=== PATIENT | female | born 1990 | race Caucasian/White ===

== ENCOUNTER 2017-02-01 03:19 | Inpatient (IN) | payer BC ==
[2017-02-01] MEDS ORDERED: Sodium Chloride 0.9% 10 ML Syringe FLUSH PRN ×3 (03:34→17:08)
[2017-02-01] MEDS ORDERED: Ondansetron 4 MG/2 ML SDV IVPUSH PRN ×2 (03:34→15:23)
[2017-02-01] MEDS ORDERED: Nalbuphine 20 MG/1 ML Amp IVPUSH PRN (03:34)
[2017-02-01] MEDS ORDERED: Oxytocin/Lactated Ringers 10 UNIT/1,000 ML BAG IV SCH (03:45)
[2017-02-01] MEDS ORDERED: Sodium Chloride 0.9% 200 ML ONE (03:53)
[2017-02-01] MEDS ORDERED: Ampicillin 2 GM in Sodium Chloride 0.9% 100 ML IV ONE (04:00)
[2017-02-01] MEDS: Lactated Ringers 1,000 ML IV SCH ×4 (04:11→11:50)
[2017-02-01] MEDS ORDERED: Ampicillin 1 GM in Sodium Chloride 0.9% 100 ML IV SCH (04:15)
[2017-02-01] MEDS: Ampicillin 1 GM in Sodium Chloride 0.9% 100 ML IV SCH ×5 (04:24→19:14)
[2017-02-01] MEDS ORDERED: fentaNYL 100 MCG/2 ML SDV EPIDUR PRN (06:53)
[2017-02-01] MEDS ORDERED: ePHEDrine 50 MG/ML SDV IVPUSH PRN ×3 (06:53→17:08)
[2017-02-01] MEDS ORDERED: diphenhydrAMINE 50 MG/ML SDV IVPUSH PRN ×3 (06:53→17:08)
[2017-02-01] MEDS ORDERED: Bupivacaine/fentaNYL/NS 100 ML Bag EPIDUR SCH (07:00)
--- NOTE | 2017-02-01 07:27 | PCM.PREANE ---
Preanesthetic Assessment - Anesthesia/Transfusion/Family Hx Anesthesia History: Prior Anesthesia Without Reaction Family History of Anesthesia Reaction: No Transfusion History: No Prior Transfusion(s) - Review of Systems General: No Symptoms Pulmonary: No Symptoms Cardiovascular: No Symptoms Gastrointestinal: No symptoms Neurological: No Symptoms Other: Reports: None - Physical Assessment Pulse: 98 O2 Sat by Pulse Oximetry: 99 Respiratory Rate: 16 Blood Pressure: 125/87 Temperature: 37.2 C Vital Signs: Last Vital Signs Temp 37.2 C 02/01/17 03:34 Pulse 98 02/01/17 03:34 Resp 16 02/01/17 03:34 BP 125/87 02/01/17 03:34 Pulse Ox 99 02/01/17 03:34 Height: 1.57 m Weight: 76.067 kg ASA Class: 2 Mental Status: Alert & Oriented x3 Airway Class: Mallampati = 1 Dentition: Reports: Normal Dentition Thyro-Mental Finger Breadths: 3 Mouth Opening Finger Breadths: 3 ROM/Head Extension: Full Lungs: Clear to auscultation, Normal respiratory effort Cardiovascular: Regular Rate, Regular Rhythm - Lab Values: Laboratory Last Values WBC 13.79 K/mm3 (3.98-10.04) H 02/01/17 03:45 RBC 4.60 M/mm3 (3.98-5.22) 02/01/17 03:45 Hgb 13.7 gm/L (11.2-15.7) 02/01/17 03:45 Hct 39.5 % (34.1-44.9) 02/01/17 03:45 MCV 85.9 fl (79.4-94.8) 02/01/17 03:45 MCH 29.8 pg (25.6-32.2) 02/01/17 03:45 MCHC 34.7 g/dl (32.2-35.5) 02/01/17 03:45 RDW Std Deviation 40.9 fL (36.4-46.3) 02/01/17 03:45 Plt Count 251 K/mm3 (182-369) 02/01/17 03:45 MPV 9.3 fl (9.4-12.3) L 02/01/17 03:45 Neut % (Auto) 75.3 % (34.0-71.1) H 02/01/17 03:45 Lymph % (Auto) 17.8 % (19.3-51.7) L 02/01/17 03:45 [place] % (Auto) 6.1 % (4.7-12.5) 02/01/17 03:45 Eos % (Auto) 0.1 (0.7-5.8) L 02/01/17 03:45 Baso % (Auto) 0.2 % (0.1-1.2) 02/01/17 03:45 Neut # (Auto) 10.37 K/mm3 (1.56-6.13) H 02/01/17 03:45 Lymph # (Auto) 2.46 K/mm3 (1.18-3.74) 02/01/17 03:45 [place] # (Auto) 0.84 K/mm3 (0.24-0.36) H 02/01/17 03:45 Eos # (Auto) 0.02 K/mm3 (0.04-0.36) L 02/01/17 03:45 Baso # (Auto) 0.03 K/mm3 (0.01-0.08) 02/01/17 03:45 - Allergies Allergies/Adverse Reactions: Allergies Allergy/AdvReac Type Severity Reaction Status Date / Time No Known Allergies Allergy Verified 02/01/17 03:38 - Anesthesia Plan Pre-Op Medication Ordered: None - Acknowledgements Anesthesia Type Planned: Epidural Pt an Appropriate Candidate for the Planned Anesthesia: Yes Alternatives and Risks of Anesthesia Discussed w Pt/Guardian: Yes Pt/Guardian Understands and Agrees with Anesthesia Plan: Yes PreAnesthesia Questionnaire Genitourinary History: Reports: UTI, Recurrent [employer]ER History: Reports: - Past Surgical History HEENT Surgical History: Reports: Adenoidectomy, Tonsillectomy - SUBSTANCE USE Smoking Status *Q: Never Smoker Tobacco Use Within Last Twelve Months: No Second Hand Smoke Exposure: No Recreational Drug Use History: No - CURRENT (IN HOUSE) MEDS Current Meds: Current Medications Diphenhydramine HCl (Benadryl) 25 mg IVPUSH Q6H PRN PRN Reason: Itching Ephedrine Sulfate (Ephedrine Sulfate) 5 mg IVPUSH ASDIRECTED PRN PRN Reason: HYPOTENTSION Fentanyl (Sublimaze) 100 mcg EPIDUR Q3H PRN PRN Reason: PAIN Last Admin: 02/01/17 07:19 Dose: 100 mcg Fentanyl/Bupivacaine HCl (Fentanyl/Bupivacaine/Ns 2 Mcg-0.125% 100 Ml) 100 ml EPIDUR ASDIRECTED [facility] Ampicillin Sodium 1 gm/ Sodium (Chloride) 100 mls @ 200 mls/hr IV Q4H [facility] Lactated Ringer's (Ringers, Lactated) 1,000 mls @ 100 mls/hr IV ASDIRECTED [facility] Last Admin: 02/01/17 06:31 Dose: 100 mls/hr Oxytocin/Lactated Ringer's (Pitocin In Lr 10 Units/1,000 Ml) 10 unit in 1,000 mls @ 500 mls/hr IV TITRATE [facility] PRN Reason: Protocol Nalbuphine HCl (Nubain) 10 mg IVPUSH Q2H PRN PRN Reason: Pain (moderate 4-6) Ondansetron HCl (Zofran) 4 mg IVPUSH Q4H PRN PRN Reason: Nausea/Vomiting Sodium Chloride (Saline Flush) 10 ml FLUSH ASDIRECTED PRN PRN Reason: Keep Vein Open Discontinued Medications Ampicillin Sodium 2 gm/ Sodium (Chloride) 100 mls @ 200 mls/hr IV ONETIME ONE Stop: 02/01/17 04:29 Last Admin: 02/01/17 04:47 Dose: Not Given Sodium Chloride (Normal Saline) Confirm Administered Dose 200 mls @ as directed .ROUTE .STK-MED ONE Stop: 02/01/17 03:54 Last Admin: 02/01/17 04:16 Dose: Not Given Ampicillin Sodium 1 gm/ Sodium (Chloride) 100 mls @ 200 mls/hr IV Q15M [facility] Stop: 02/01/17 04:44 Last Admin: 02/01/17 04:26 Dose: 200 mls/hr
--- NOTE | 2017-02-01 08:29 | PCM.LDHP ---
L&D History of Present Illness - General Date of Service: 02/01/17 Admit Problem/Dx: Patient Status Order with Admit Dx/Problem 02/01/17 03:35 Patient Status [ADT] Routine Admission Diagnosis/Problem Admission Diagnosis/Problem Normal labor 02/01/17 08:20 26-year-old 1 para 0 at 40-4/7 weeks gestational age, active labor Source of Information: Patient History Limitations: Reports: No Limitations - History of Present Illness Introduction:: The patient is a 26-year-old 1 para 0 white female who was due on [address] or not 40-4/7 weeks gestational age. Onset of labor last evening intensified at approximately 1:00 this a.m. and came into the hospital at approximately 3:30 AM on 02/01/2017. Now is 9 cm dilated and ivan well progressing without concern. heart tones are within normal limits. [employer] history: 1 para 0 ANNALISE 01/28/2017 as based upon a certain LMP that started on 04/23/2016. These dates are supported by ultrasounds done on 2015 and 09/20/2016. Her course is been relatively unremarkable. She has an anti-M antibody titer has been negative. Etiology of the titer is not known. does not have an M antigen. Patient has not had any transfusions. It does not seem to affect the whatsoever. Patient plans to breast-feed. She is group B strep positive and is received antibiotic therapy. Her last menstrual period was relatively certain. Frequency of periods every 28 days. Menarche age 11. No control at time of conception. Female course started on 06/27/2016. Patient's weight gain has been from 142-168 pounds first a 26 pound weight gain. Her vital signs were stable. Fundal height growth has been appropriate. labs: Blood is A+. And by screen is positive for anti-M antibody. Titers however on repeat have been negative. Initial hemoglobin was 13.8. Platelets initially were 312,000. She is rubella immune. RPR is nonreactive. Urine culture was negative. Hepatitis B and HIV assays were negative. Chlamydia and gonorrhea assays were both negative. Hemoglobin second trimester was 12.0 and platelets were 258,000. One-hour GTT was 109. Group B strep screen was positive. Allergies none Medications: 1. vitamins daily 2. Calcium 600 mg 2 tablets daily. Past medical history: 1. Anti-M antibody Past surgical history: 1. Tonsillectomy 2009 2. [place] teeth extraction 2014. Family history: Mother is alive but has hypothyroidism. Father is alive but has rheumatoid arthritis and hypertension and also type 2 diabetes. One sister and 1 brother both alive and well. Maternal grandmother secondary to Alzheimer's. Maternal grandfather secondary to an [place]. Paternal grandmother -cause unknown. Paternal grandfather secondary to CLL and an [place]. Patient denies any bleeding or clotting disorders, allergies, reactions to anesthesia or problems in the family. Social history: Patient is . is [place]. She denies any significant amounts alcohol, drugs or tobacco. She works at [employer] in [facility]. They live in [place]. Review of systems. Skin -negative Lungs-no infectious symptoms or shortness of breath Cardiovascular -no chest pain or exercise intolerance. Breasts changes associated with GI negative changes associated with Musculoskeletal-negative Neurological-negative Physical exam: In general patient is a well-developed, well-nourished, pleasant female stated age in no acute distress. Skin is warm and dry without lesions. Cardiovascular exam shows regular rate and rhythm. Lungs are clear with good breath sounds in all lung atkins. Breast exam is deferred. It was done at first visit and found to be normal. Abdomen is protuberant with with fundal height of 37 cm Cervical exam: 9 cm, 100% effaced, very soft, anterior, 0 station. Extremities-no significant edema Musculoskeletal and neurologic within normal limits. Pain Score: 10 - Related Data Allergies/Adverse Reactions: Allergies Allergy/AdvReac Type Severity Reaction Status Date / Time No Known Allergies Allergy Verified 02/01/17 03:38 Past Medical History Genitourinary History: Reports: UTI, Recurrent [employer] History: Reports: - Past Surgical History HEENT Surgical History: Reports: Adenoidectomy, Tonsillectomy Social & Family History - Family History Family Medical History: Noncontributory - Tobacco Use Smoking Status *Q: Never Smoker Second Hand Smoke Exposure: No - Caffeine Use Caffeine Use: Reports: Coffee Other Caffeine Use: daily - Recreational Drug Use Recreational Drug Use: No H&P Review of Systems - Review of Systems: Review Of Systems: See Below L&D Exam - Exam Exam: See Below - Vital Signs Vital Signs: Last Vital Signs Temp 37.2 C 02/01/17 07:27 Pulse 98 02/01/17 07:27 Resp 16 02/01/17 07:27 BP 125/87 02/01/17 07:27 Pulse Ox 99 02/01/17 07:27 Weight: 76.067 kg - Patient Data Lab Results Last 24 hrs: Laboratory Results - last 24 hr 02/01/17 Range/Units 03:45 WBC 13.79 H (3.98-10.04) K/mm3 RBC 4.60 (3.98-5.22) M/mm3 Hgb 13.7 (11.2-15.7) gm/L Hct 39.5 (34.1-44.9) % MCV 85.9 (79.4-94.8) fl MCH 29.8 (25.6-32.2) pg MCHC 34.7 (32.2-35.5) g/dl RDW Std Deviation 40.9 (36.4-46.3) fL Plt Count 251 (182-369) K/mm3 MPV 9.3 L (9.4-12.3) fl Neut % (Auto) 75.3 H (34.0-71.1) % Lymph % (Auto) 17.8 L (19.3-51.7) % [place] % (Auto) 6.1 (4.7-12.5) % Eos % (Auto) 0.1 L (0.7-5.8) Baso % (Auto) 0.2 (0.1-1.2) % Neut # (Auto) 10.37 H (1.56-6.13) K/mm3 Lymph # (Auto) 2.46 (1.18-3.74) K/mm3 [place] # (Auto) 0.84 H (0.24-0.36) K/mm3 Eos # (Auto) 0.02 L (0.04-0.36) K/mm3 Baso # (Auto) 0.03 (0.01-0.08) K/mm3 Result Diagrams: 02/01/17 03:45 Problem List Initiated/Reviewed/Updated: Yes Orders Last 24hrs: Active Orders 24 hr Category Date Time Status Patient Status [ADT] Routine ADT 02/01/17 03:35 Active Activity as Tolerated [RC] PFP Care 02/01/17 03:34 Active Communication Order [RC] ASDIRECTED Care 02/01/17 03:34 Active Communication Order [RC] ASDIRECTED Care 02/01/17 06:53 Active Cooling Warming Measures [RC] ASDIRECTED Care 02/01/17 06:53 Active Heart Tones [RC] ASDIRECTED Care 02/01/17 03:35 Active Notify Provider [RC] ASDIRECTED Care 02/01/17 06:53 Active Notify Provider [RC] PFP Care 02/01/17 03:34 Active Notify Provider [RC] PRN Care 02/01/17 03:34 Active Oxygen Therapy [RC] ASDIRECTED Care 02/01/17 06:52 Active Peripheral IV Care [RC] . DIRECTED Care 02/01/17 03:35 Active Pulse Oximetry [RC] ASDIRECTED Care 02/01/17 06:53 Active Verify Patient Consent Obtain [RC] ASDIRECTED Care 02/01/17 06:53 Active Vital Signs [RC] PER UNIT ROUTINE Care 02/01/17 03:34 Active Vital Signs [RC] Q1H Care 02/01/17 06:52 Active Ampicillin 1 gm Med 02/01/17 08:00 Active Sodium Chloride 0.9% [Normal Saline] 100 ml IV Q4H Bupivacaine/fentaNYL/NS [fentaNYL/Bupivacaine/NS 2 MCG- Med 02/01/17 07:00 Active 0.125% 100 ML] 100 ml EPIDUR ASDIRECTED Lactated Ringers [Ringers, Lactated] 1,000 ml Med 02/01/17 03:45 Active IV ASDIRECTED Nalbuphine [Nubain] Med 02/01/17 03:34 Active 10 mg IVPUSH Q2H PRN Ondansetron [Zofran] Med 02/01/17 03:34 Active 4 mg IVPUSH Q4H PRN Oxytocin/Lactated Ringers [Pitocin in LR 10 Units/1,000 Med 02/01/17 03:45 Active ML] 10 unit in 1,000 ml IV TITRATE Sodium Chloride 0.9% [Saline Flush] Med 02/01/17 03:34 Active 10 ml FLUSH ASDIRECTED PRN diphenhydrAMINE [Benadryl] Med 02/01/17 06:53 Active 25 mg IVPUSH Q6H PRN ePHEDrine [ePHEDrine Sulfate] Med 02/01/17 06:53 Active 5 mg IVPUSH ASDIRECTED PRN fentaNYL [Sublimaze] Med 02/01/17 06:53 Active 100 mcg EPIDUR Q3H PRN Electronic Heart Tones Ext w TOCO [WOMSER] Oth 02/01/17 03:34 Ordered Routine Electronic Heart Tones Internal [WOMSER] Per Unit Ot 02/01/17 03:34 Ordered Routine Peripheral IV Insertion Adult [OM.PC] Routine Oth 02/01/17 03:34 Ordered Resuscitation Status Routine Resus Stat 02/01/17 03:34 Ordered Medication Orders Diphenhydramine HCl (Benadryl) 25 mg IVPUSH Q6H PRN PRN Reason: Itching Ephedrine Sulfate (Ephedrine Sulfate) 5 mg IVPUSH ASDIRECTED PRN PRN Reason: HYPOTENTSION Fentanyl (Sublimaze) 100 mcg EPIDUR Q3H PRN PRN Reason: PAIN Last Admin: 02/01/17 07:19 Dose: 100 mcg Fentanyl/Bupivacaine HCl (Fentanyl/Bupivacaine/Ns 2 Mcg-0.125% 100 Ml) 100 ml EPIDUR ASDIRECTED [facility] Ampicillin Sodium 1 gm/ Sodium (Chloride) 100 mls @ 200 mls/hr IV Q4H [facility] Last Admin: 02/01/17 08:03 Dose: 200 mls/hr Lactated Ringer's (Ringers, Lactated) 1,000 mls @ 100 mls/hr IV ASDIRECTED [facility] Last Admin: 02/01/17 07:53 Dose: 500 mls/hr Infusion: 02/01/17 07:53 Dose: 999 mls/hr Admin: 02/01/17 06:31 Dose: 100 mls/hr Infusion: 02/01/17 06:31 Dose: 100 mls/hr Admin: 02/01/17 04:11 Dose: 100 mls/hr Oxytocin/Lactated Ringer's (Pitocin In Lr 10 Units/1,000 Ml) 10 unit in 1,000 mls @ 500 mls/hr IV TITRATE [facility] PRN Reason: Protocol Nalbuphine HCl (Nubain) 10 mg IVPUSH Q2H PRN PRN Reason: Pain (moderate 4-6) Ondansetron HCl (Zofran) 4 mg IVPUSH Q4H PRN PRN Reason: Nausea/Vomiting Sodium Chloride (Saline Flush) 10 ml FLUSH ASDIRECTED PRN PRN Reason: Keep Vein Open Assessment/Plan Comment:: Assessment: 1. Term intrauterine at 40-4/7 weeks gestational age, active labor with rapid progression 2. Group B strep screen positive-antibiotics have been given 3. Anti-M antibody repeated titers in negative. Etiology uncertain. 4. Patient plans to nurse 5. Epidural in place. Plan: 1. Chest pain normal spontaneous vaginal delivery 2. Continue antibiotic prophylaxis per protocol 3. Epidural for analgesia. 4. Support nursing
--- NOTE | 2017-02-01 12:11 | PCM.SN ---
- Free Text/Narrative Note: Pushing since about 1100. Light meconium stained amniotic fluid, check to confirm vertes, FHT's normal decelerations with pushing from suspected head compression and acceleration with scalp stimulation. Continue pushing.
--- NOTE | 2017-02-01 14:28 | PCM.SN ---
- Free Text/Narrative Note: At 1415 patient has been pushing at 1100 hours with meconium stained amniotic fluid. Did have 30 minutes of not pushing while I came to confirm presentation. FHT's stable. Vertex persistant occiput posterior and zero station to +1 at most at present time. Offered section vs continued pushing for 30 minutes and reevaluate. Too high at present time to place forceps or vacuum.
[2017-02-01] MEDS ORDERED: Bupivacaine 0.5% 30 ML SDV ONE (14:29)
--- NOTE | 2017-02-01 14:37 | PCM.SN ---
- Free Text/Narrative Note: Patient and have decided upon section. Patient exhausted. Will proceed with section
[2017-02-01] MEDS ORDERED: Metoclopramide 10 MG/2 ML SDV IVPUSH ONE ×2 (14:38→14:40)
[2017-02-01] MEDS ORDERED: Citric Acid/Sodium Citrate Solution 30 ML Cup PO ONE ×2 (14:39→14:40)
[2017-02-01] MEDS ORDERED: ceFAZolin 2 GM in Premix Bag 1 BAG IV ONE (14:40)
[2017-02-01] MEDS ORDERED: Lactated Ringers 1,000 ML IV SCH (14:45)
[2017-02-01] MEDS ORDERED: Phenylephrine 1% 10 MG/ML SDV ONE (14:55)
[2017-02-01] MEDS ORDERED: fentaNYL 100 MCG/2 ML SDV ONE (14:55)
[2017-02-01] MEDS ORDERED: Ondansetron 4 MG/2 ML SDV ONE (14:55)
[2017-02-01] MEDS ORDERED: ceFAZolin 1 GM Vial ONE (14:55)
[2017-02-01] MEDS ORDERED: Oxytocin 10 Units/1 ML SDV ONE (14:55)
[2017-02-01] MEDS ORDERED: Lidocaine 2% with EPINEPHrine 1:200,000 20 ML SDV ONE (14:55)
[2017-02-01] MEDS ORDERED: Ketorolac 30 MG/ML SDV ONE (14:55)
--- NOTE | 2017-02-01 14:55 | PCM.OPNOTE ---
- General Post-Op/Procedure Note Date of Surgery/Procedure: 02/01/17 Operative Procedure(s): section Pre Op Diagnosis: 40+ weeks, meconium stained amniotic fluic, failure to progress second stage, occiput posterior Post-Op Diagnosis: Same Anesthesia Technique: Epidural Primary Surgeon: Chu Rai Secondary Surgeon: Sandra Levine Anesthesia Provider: Juliann Beckford Cash Room Clerk: Marion Vo (MS3) Fluid Replacement, Intraop: 850 Output, Urine Amount: 100 EBL in mLs: 60 Drain/Tube Comments:: Monet catheter Complications: None Condition: Good Free Text/Narrative:: Patient was transported to operating room #1 and placed under epidural anesthesia in the supine position with wedge under right hip right flank SCDs in place and functioning prior surgery Ancef 2 g given intravenously prior surgery Monet catheter in place prepared and draped in sterile fashion timeout performed confirming name date of and procedure section adequate level of anesthesia having been confirmed injecting 20 mL of 0.5% Marcaine in the subcutaneous tissue and area of the planned incision the was brought to the operating room incision made and care was sharp section to into the anterior fascia (Pfannenstiel incision). The incision was carried sharp section to into the anterior fascia peritoneal cavity was entered without difficulty bladder flap created pushed caudad the amniotic cavity was entered through a low transverse uterine incision and the head was occiput posterior gently lifted out of the pelvis and rotated to occiput anterior and delivered a female liveborn and 1521 hrs. weighing 6 lbs. 14 oz. 8/9 Dr. Rashid as400 administrator in attendance. The cord was clamped and handed to Dr. Rashid and cord blood collected from normal three-vessel cord placenta was removed manually and the endometrial cavity was inspected sponge needle pack asthma sharp count correct 1 and uterine incision closed in 2 layers with a running locking suture of 0 Monocryl and second horizontal imbricating suture the modified Lembert type for the second layer closure with an additional figure -of-eight suture midportion of the incision for hemostasis both tubes and ovaries were normal clot screen from the gutters and cul-de-sac uterus replaced into abdominal cavity sponge needle pack asthma sharp count correct 2 and the abdominal cavity was closed with #1 PDS for the anterior fascia septated tissue was irrigated with 500 mL of saline and skin was closed with subcuticular stitch of 3-0 Monocryl and Leander needle and Preneo Dermabond applied no blood transfusions were required not anticipated clots were cleaned from the vagina and the patient was transported postanesthesia care unit in satisfactory condition
[2017-02-01] MEDS ORDERED: Morphine PF 10 MG/10 ML SDV ONE (14:56)
[2017-02-01] MEDS ORDERED: Methylergonovine 0.2 MG/1 ML Amp ONE (15:15)
[2017-02-01] MEDS ORDERED: HYDROmorphone 0.5 MG/0.5 ML Syringe IVPUSH PRN (15:23)
[2017-02-01] MEDS ORDERED: fentaNYL 100 MCG/2 ML SDV IVPUSH PRN (15:23)
[2017-02-01] MEDS ORDERED: Meperidine PF 50 MG/ML Syringe IVPUSH PRN (15:23)
[2017-02-01] MEDS ORDERED: Phenylephrine 1 MG in Sodium Chloride 0.9% 10 ML IV SCH (15:30)
[2017-02-01] MEDS ORDERED: Meperidine PF 50 MG/ML Syringe ONE (15:38)
[2017-02-01] MEDS ORDERED: Misoprostol 200 MCG Tab ONE (15:58)
--- NOTE | 2017-02-01 16:02 | PCM.POSTAN ---
POST ANESTHESIA ASSESSMENT - MENTAL STATUS Mental Status: alert - VITAL SIGNS Pulse Rate: 90 SaO2: 95 Resp Rate: 16 Blood Pressure: 107/70 Temperature: 36.4 C - RESPIRATORY Respiratory Status: respiratory rate WNL, airway patent, O2 saturation stable - CARDIOVASCULAR CV Status: pulse rate WNL, blood pressure stable - GASTROINTESTINAL GI Status: no symptoms - POST OP HYDRATION Hydration Status: adequate & stable
--- NOTE | 2017-02-01 16:07 | PCM.SN ---
- Free Text/Narrative Note: Called to [facility] patient had increased bleeding. Vigorous assage of uterus and patient had IV dilute Pitocin solution running and given Methergine 0.2 IM in OR and now ordered Cytotec 200 mcg x2 buccal left and right total of 400 mcg. Clots cleaned from the vagina and patient bleeding slowed significantly. CBC ordered and patient stable.
[2017-02-01] MEDS ORDERED: Acetaminophen 325 MG Tab PO PRN (17:08)
[2017-02-01] MEDS ORDERED: Dextrose 5%-Lactated Ringers 1,000 ML IV SCH (17:08)
[2017-02-01] MEDS ORDERED: Lanolin 100% Cream 7 GM Tube TOP PRN (17:08)
[2017-02-01] MEDS ORDERED: Naloxone 0.4 MG/ML SDV IVPUSH PRN (17:08)
[2017-02-01] MEDS ORDERED: Witch Hazel Medicated Pads 100/Jar TOP PRN (17:08)
[2017-02-01] MEDS ORDERED: Misoprostol 200 MCG Tab PO ONE (17:08)
[2017-02-01] MEDS ORDERED: Docusate Sodium 100 MG Cap PO PRN (17:08)
[2017-02-01] MEDS ORDERED: Ondansetron 4 MG/2 ML SDV IV PRN (17:08)
[2017-02-01] MEDS: Ketorolac 30 MG/ML SDV IVPUSH SCH (21:37)
[2017-02-02] MEDS ORDERED: Dextrose 5%-0.45% NaCl 1,000 ML IV SCH (01:00)
[2017-02-02] MEDS: Ketorolac 30 MG/ML SDV IVPUSH SCH ×2 (03:40→14:08)
--- NOTE | 2017-02-02 07:53 | PCM48HPAN ---
Post Anesthesia Note - EVALUATION WITHIN 48HRS OF ANESTHETIC Vital Signs in Normal Range: Yes Patient Participated in Evaluation: Yes Respiratory Function Stable: Yes Airway Patent: Yes Cardiovascular Function Stable: Yes Hydration Status Stable: Yes Pain Control Satisfactory: Yes Nausea and Vomiting Control Satisfactory: Yes Mental Status Recovered: Yes - COMMENTS/OBSERVATIONS Free Text/Narrative:: Pt reports doing well. baby likewise doing well. reports epidural is completely resolved with return of normal sensation and strength. has been up ambulating without problem. maldonado just removed, no attempt yet at using restroom. no f/c or n/v. taking p.o. without problem.
--- NOTE | 2017-02-02 07:57 | PCM.SN ---
- Free Text/Narrative Note: POD#1 Afebrile, no heavy vaginal bleeding, no leg cramping. Incision normal.
[2017-02-02] MEDS ORDERED: Bupivacaine 0.25% 10 ML SDV ONE (09:00)
[2017-02-02] MEDS: Acetaminophen/oxyCODONE 325-5 MG Tab PO PRN ×2 (14:14→23:15)
[2017-02-02] MEDS: Ibuprofen 600 MG Tab PO PRN (20:30)
[2017-02-03] MEDS: Ibuprofen 600 MG Tab PO PRN ×2 (03:37→13:44)
[2017-02-03 13:11] VITALS: BP 140/86
--- NOTE | 2017-02-03 13:32 | PCM.DCSUM1 ---
Discharge Summary - Hospital Course Free Text/Narrative:: [facility] Post-Op/Procedure Note Patient Name: HAYLEE LEONG Date of : 88 Patient Status: Inpatient Attending Provider: Reji Castaneda Date: 02/01/17 14:53 Initialization Date: 02/01/17 14:53 - General Post-Op/Procedure Note Date of Surgery/Procedure: 02/01/17 Operative Procedure(s): section Pre Op Diagnosis: 40+ weeks, meconium stained amniotic fluic, failure to progress second stage, occiput posterior Post-Op Diagnosis: Same Anesthesia Technique: Epidural Primary Surgeon: Chu Rai Secondary Surgeon: Sandra Levine Anesthesia Provider: Juliann Beckford Deodorizer Operator: Marion Vo (MS3) Fluid Replacement, Intraop: 850 Output, Urine Amount: 100 EBL in mLs: 60 Drain/Tube Comments:: Monet catheter Complications: None Condition: Good Free Text/Narrative:: Patient was transported to operating room #1 and placed under epidural anesthesia in the supine position with wedge under right hip right flank SCDs in place and functioning prior surgery Ancef 2 g given intravenously prior surgery Monet catheter in place prepared and draped in sterile fashion timeout performed confirming name date of and procedure section adequate level of anesthesia having been confirmed injecting 20 mL of 0.5% Marcaine in the subcutaneous tissue and area of the planned incision the was brought to the operating room incision made and care was sharp section to into the anterior fascia (Pfannenstiel incision). The incision was carried sharp section to into the anterior fascia peritoneal cavity was entered without difficulty bladder flap created pushed caudad the amniotic cavity was entered through a low transverse uterine incision and the head was occiput posterior gently lifted out of the pelvis and rotated to occiput anterior and delivered a female liveborn and 1521 hrs. weighing 6 lbs. 14 oz. 8/9 Dr. Rashid motion picture printer in attendance. The cord was clamped and handed to Dr. Rashid and cord blood collected from normal three-vessel cord placenta was removed manually and the endometrial cavity was inspected sponge needle pack asthma sharp count correct 1 and uterine incision closed in 2 layers with a running locking suture of 0 Monocryl and second horizontal imbricating suture the modified Lembert type for the second layer closure with an additional figure -of-eight suture midportion of the incision for hemostasis both tubes and ovaries were normal clot screen from the gutters and cul-de-sac uterus replaced into abdominal cavity sponge needle pack asthma sharp count correct 2 and the abdominal cavity was closed with #1 PDS for the anterior fascia septated tissue was irrigated with 500 mL of saline and skin was closed with subcuticular stitch of 3-0 Monocryl and Leander needle and Preneo Dermabond applied no blood transfusions were required not anticipated clots were cleaned from the vagina and the patient was transported postanesthesia care unit in satisfactory condition HPI Initial Comments: [facility] Post-Op/Procedure Note Patient Name: HAYLEE LEONG Date of : 88 Patient Status: Inpatient Attending Provider: Reji Castaneda Date: 02/01/17 14:53 Initialization Date: 02/01/17 14:53 - General Post-Op/Procedure Note Date of Surgery/Procedure: 02/01/17 Operative Procedure(s): section Pre Op Diagnosis: 40+ weeks, meconium stained amniotic fluic, failure to progress second stage, occiput posterior Post-Op Diagnosis: Same Anesthesia Technique: Epidural Primary Surgeon: Chu Rai Secondary Surgeon: Sandra Levine Anesthesia Provider: Juliann Beckford Deodorizer Operator: Marion Vo (MS3) Fluid Replacement, Intraop: 850 Output, Urine Amount: 100 EBL in mLs: 60 Drain/Tube Comments:: Monet catheter Complications: None Condition: Good Free Text/Narrative:: Patient was transported to operating room #1 and placed under epidural anesthesia in the supine position with wedge under right hip right flank SCDs in place and functioning prior surgery Ancef 2 g given intravenously prior surgery Monet catheter in place prepared and draped in sterile fashion timeout performed confirming name date of and procedure section adequate level of anesthesia having been confirmed injecting 20 mL of 0.5% Marcaine in the subcutaneous tissue and area of the planned incision the was brought to the operating room incision made and care was sharp section to into the anterior fascia (Pfannenstiel incision). The incision was carried sharp section to into the anterior fascia peritoneal cavity was entered without difficulty bladder flap created pushed caudad the amniotic cavity was entered through a low transverse uterine incision and the head was occiput posterior gently lifted out of the pelvis and rotated to occiput anterior and delivered a female liveborn and 1521 hrs. weighing 6 lbs. 14 oz. 8/9 Dr. Rashid motion picture printer in attendance. The cord was clamped and handed to Dr. Rashid and cord blood collected from normal three-vessel cord placenta was removed manually and the endometrial cavity was inspected sponge needle pack asthma sharp count correct 1 and uterine incision closed in 2 layers with a running locking suture of 0 Monocryl and second horizontal imbricating suture the modified Lembert type for the second layer closure with an additional figure -of-eight suture midportion of the incision for hemostasis both tubes and ovaries were normal clot screen from the gutters and cul-de-sac uterus replaced into abdominal cavity sponge needle pack asthma sharp count correct 2 and the abdominal cavity was closed with #1 PDS for the anterior fascia septated tissue was irrigated with 500 mL of saline and skin was closed with subcuticular stitch of 3-0 Monocryl and Leander needle and Preneo Dermabond applied no blood transfusions were required not anticipated clots were cleaned from the vagina and the patient was transported postanesthesia care unit in satisfactory condition Brief History: [facility] . Post-Op/Procedure Note. Patient Name: HAYLEE LEONGedical Record Number: [id number]. Date of : Patient Status: Inpatient. Attending Provider: Reji Castaneda FAccount Number : [id number]. Date: 02/01/17 14:53Initialization Date: 02/01/17 14:53. - General Post-Op/Procedure Note. Date of Surgery/Procedure: 02/01/17. Operative Procedure(s): section. Pre Op Diagnosis: 40+ weeks, meconium stained amniotic fluic, failure to progress second stage, occiput posterior. Post-Op Diagnosis: Same. Anesthesia Technique: Epidural. Primary Surgeon: Chu Rai. Secondary Surgeon: Sandra Levine. Anesthesia Provider: Juliann Beckford. Deodorizer Operator: Marion Vo (MS3). Fluid Replacement, Intraop: 850. Output, Urine Amount: 100. EBL in mLs: 60. Drain/Tube Comments: : Monet catheter. Complications: None. Condition: Good. Free Text/Narrative: : Patient was transported to operating room #1 and placed under epidural anesthesia in the supine position with wedge under right hip right flank SCDs in place and functioning prior surgery Ancef 2 g given intravenously prior surgery Monet catheter in place prepared and draped in sterile fashion timeout performed confirming name date of and procedure section adequate level of anesthesia having been confirmed injecting 20 mL of 0.5% Marcaine in the subcutaneous tissue and area of the planned incision the was brought to the operating room incision made and care was sharp section to into the anterior fascia (Pfannenstiel incision). The incision was carried sharp section to into the anterior fascia peritoneal cavity was entered without difficulty bladder flap created pushed caudad the amniotic cavity was entered through a low transverse uterine incision and the head was occiput posterior gently lifted out of the pelvis and rotated to occiput anterior and delivered a female liveborn and 1521 hrs. weighing 6 lbs. 14 oz. 8/9 Dr. Rashid motion picture printer in attendance. The cord was clamped and handed to Dr. Rashid and cord blood collected from normal three-vessel cord placenta was removed manually and the endometrial cavity was inspected sponge needle pack asthma sharp count correct 1 and uterine incision closed in 2 layers with a running locking suture of 0 Monocryl and second horizontal imbricating suture the modified Lembert type for the second layer closure with an additional figure -of-eight suture midportion of the incision for hemostasis both tubes and ovaries were normal clot screen from the gutters and cul-de-sac uterus replaced into abdominal cavity sponge needle pack asthma sharp count correct 2 and the abdominal cavity was closed with #1 PDS for the anterior fascia septated tissue was irrigated with 500 mL of saline and skin was closed with subcuticular stitch of 3-0 Monocryl and Leander needle and Preneo Dermabond applied no blood transfusions were required not anticipated clots were cleaned from the vagina and the patient was transported postanesthesia care unit in satisfactory condition - Discharge Data Discharge Date: 02/03/17 Discharge Disposition: Home, Self-Care 01 Condition: Good - Discharge Diagnosis/Problem(s) (1) 40 weeks gestation of SNOMED Code(s): 61316528 ICD Code: Z3A.40 - 40 WEEKS GESTATION OF Status: Acute Current Visit: Yes (2) Failure to progress in labor, delivered, current hospitalization SNOMED Code(s): 247115042 ICD Code: O62.2 - OTHER UTERINE INERTIA Status: Acute Current Visit: Yes (3) Meconium in amniotic fluid affecting management of mother, delivered SNOMED Code(s): 91554816, 175634707, 993293261 ICD Code: O77.0 - LABOR AND DELIVERY COMPLICATED BY MECONIUM IN AMNIOTIC FLUID Status: Acute Current Visit: Yes (4) Occiput posterior presentation of fetus SNOMED Code(s): 94297397 ICD Code: O64.0XX0 - OBSTRUCTED LABOR DUE TO INCMPL ROTATION OF HEAD, UNSP Status: Acute Current Visit: Yes Qualifiers: Fetus number: single or unspecified fetus Qualified Code(s): O64.0XX0 - Obstructed labor due to incomplete rotation of head, not applicable or unspecified - Patient Summary/Data Operative Procedure(s) Performed: section Complications: None Consults: None Hospital Course: Uneventful - Patient Instructions Diet: Heart Healthy Diet Driving: Do Not Drive (x4 weeks or 48 hour after last dose of Percocet) Showering/Bathing: May Shower, No Tub Bathing/Swimming (x6 weeks) Wound/Incision Care: Keep Operative Site/Wound Site Clean and Dry Notify Provider of: Fever, Increased Pain, Swelling and Redness, Drainage, Nausea and/or Vomiting - Discharge Plan Prescriptions/Med Rec: Acetaminophen/oxyCODONE [Percocet 325-5 MG] 1 tab PO Q6H PRN #10 tablet PRN Reason: Pain Home Medications: Home Meds Acetaminophen [Tylenol] 1,000 mg PO Q6H PRN #0 tablet 02/03/17 [Rx] Acetaminophen/oxyCODONE [Percocet 325-5 MG] 1 tab PO Q6H PRN #10 tablet [Rx] Docusate Sodium [Colace] 100 mg PO Q12H PRN #0 cap 02/03/17 [Rx] Ibuprofen [IJD: Ibuprofen] 200 - 600 mg PO Q6H PRN #0 tablet 02/03/17 [Rx] Sushila Viramontes [Tucks] 1 pad TOP ASDIRECTED PRN #0 pad 02/03/17 [Rx] Referrals: Reji Castaneda MD [Primary Care Provider] - (4 weeks) - Discharge Summary/Plan Comment DC Time >30 min.: No - Patient Data Vitals - Most Recent: Last Vital Signs Temp 97.9 F 02/03/17 12:53 Pulse 76 02/03/17 12:53 Resp 16 02/03/17 12:53 BP 140/86 02/03/17 12:53 Pulse Ox 100 02/03/17 12:53 Weight - Most Recent: 167 lb 11.2 oz I&O - Last 24 hours: Intake & Output 02/02/17 02/03/17 02/03/17 22:59 06:59 14:59 Intake Total 0 Balance 0 Med Orders - Current: Current Medications Acetaminophen (Tylenol) 650 mg PO Q4H PRN PRN Reason: mild pain or fever Diphenhydramine HCl (Benadryl) 25 mg IVPUSH Q6H PRN PRN Reason: Itching or Nausea Docusate Sodium (Colace) 100 mg PO Q12H PRN PRN Reason: Constipation Last Admin: 02/02/17 14:13 Dose: 100 mg Emollient Ointment (Lansinoh Hpa) 0 gm TOP ASDIRECTED PRN PRN Reason: Sore Nipples Ephedrine Sulfate (Ephedrine Sulfate) 5 mg IVPUSH SEECOMMENT PRN PRN Reason: Other Dextrose/Sodium Chloride (Dextrose 5%-1/2 Ns) 1,000 mls @ 125 mls/hr IV ASDIRECTED YONG Ibuprofen (Motrin) 600 mg PO Q6H PRN PRN Reason: mild pain or fever Last Admin: 02/03/17 03:37 Dose: 600 mg Naloxone HCl (Narcan) 0.1 mg IVPUSH SEECOMMENT PRN PRN Reason: Respiratory Depression Ondansetron HCl (Zofran) 4 mg IV Q8H PRN PRN Reason: Nausea/Vomiting Oxycodone/Acetaminophen (Percocet 325-5 Mg) 2 tab PO Q4H PRN PRN Reason: Pain (moderate 4-6) Last Admin: 02/02/17 23:15 Dose: 2 tab Sodium Chloride (Saline Flush) 10 ml FLUSH ASDIRECTED PRN PRN Reason: Keep Vein Open Sushila Viramontes (Tucks) 1 pad TOP ASDIRECTED PRN PRN Reason: Perineal Comfort Measure Discontinued Medications Bupivacaine HCl (Marcaine 0.5%) Confirm Administered Dose 30 ml .ROUTE .STK-MED ONE Stop: 02/01/17 14:30 Last Admin: 02/01/17 15:18 Dose: 20 ml Cefazolin Sodium (Ancef) Confirm Administered Dose 2 gm .ROUTE .STK-MED ONE Stop: 02/01/17 14:56 Citric Acid/Sodium Citrate (Bicitra Solution) 30 ml PO ONETIME ONE Stop: 02/01/17 14:40 Last Admin: 02/01/17 14:45 Dose: 30 ml Citric Acid/Sodium Citrate (Bicitra Solution) 30 ml PO ONETIME ONE Stop: 02/01/17 14:41 Last Admin: 02/01/17 19:13 Dose: Not Given Diphenhydramine HCl (Benadryl) 25 mg IVPUSH Q6H PRN PRN Reason: Itching Diphenhydramine HCl (Benadryl) 25 mg IVPUSH Q6H PRN PRN Reason: pruritis Ephedrine Sulfate (Ephedrine Sulfate) 5 mg IVPUSH ASDIRECTED PRN PRN Reason: HYPOTENTSION Ephedrine Sulfate (Ephedrine Sulfate) 5 mg IVPUSH ASDIRECTED PRN PRN Reason: Hypotension Fentanyl (Sublimaze) 100 mcg EPIDUR Q3H PRN PRN Reason: PAIN Last Admin: 02/01/17 07:19 Dose: 100 mcg Fentanyl (Sublimaze) Confirm Administered Dose 100 mcg .ROUTE .STK-MED ONE Stop: 02/01/17 14:56 Fentanyl (Sublimaze) 50 mcg IVPUSH Q5M PRN PRN Reason: Pain Stop: 02/01/17 15:39 Fentanyl/Bupivacaine HCl (Fentanyl/Bupivacaine/Ns 2 Mcg-0.125% 100 Ml) 100 ml EPIDUR ASDIRECTED YONG Hydromorphone HCl (Dilaudid) 0.5 mg IVPUSH Q15M PRN PRN Reason: severe pain Stop: 02/01/17 15:39 Ampicillin Sodium 2 gm/ Sodium (Chloride) 100 mls @ 200 mls/hr IV ONETIME ONE Stop: 02/01/17 04:29 Last Admin: 02/01/17 04:47 Dose: Not Given Ampicillin Sodium 1 gm/ Sodium (Chloride) 100 mls @ 200 mls/hr IV Q4H [facility] Last Admin: 02/01/17 19:14 Dose: Not Given Lactated Ringer's (Ringers, Lactated) 1,000 mls @ 100 mls/hr IV ASDIRECTED [facility] Last Admin: 02/01/17 11:50 Dose: 500 mls/hr Oxytocin/Lactated Ringer's (Pitocin In Lr 10 Units/1,000 Ml) 10 unit in 1,000 mls @ 500 mls/hr IV TITRATE [facility] PRN Reason: Protocol Sodium Chloride (Normal Saline) Confirm Administered Dose 200 mls @ as directed .ROUTE .STK-MED ONE Stop: 02/01/17 03:54 Last Admin: 02/01/17 04:16 Dose: Not Given Ampicillin Sodium 1 gm/ Sodium (Chloride) 100 mls @ 200 mls/hr IV Q15M [facility] Stop: 02/01/17 04:44 Last Admin: 02/01/17 04:26 Dose: 200 mls/hr Cefazolin Sodium/Dextrose 2 gm (/ Premix) 50 mls @ 100 mls/hr IV ONETIME ONE Stop: 02/01/17 15:09 Last Admin: 02/01/17 19:13 Dose: Not Given Lactated Ringer's (Ringers, Lactated) 1,000 mls @ 125 mls/hr IV ASDIRECTED [facility] Phenylephrine HCl 1 mg/ Sodium (Chloride) 10.1 mls @ 1 mls/sec IV TITRATE YONG Dextrose/Lactated Ringer's (Dextrose 5%-Lactated Ringers) 1,000 mls @ 125 mls/ hr IV ASDIRECTED [facility] Stop: 02/02/17 01:07 Last Admin: 02/01/17 18:00 Dose: 125 mls/hr Ketorolac Tromethamine (Toradol) Confirm Administered Dose 30 mg .ROUTE .STK- MED ONE Stop: 02/01/17 14:56 Ketorolac Tromethamine (Toradol) 30 mg IVPUSH Q6H [facility] Stop: 02/02/17 09:31 Last Admin: 02/02/17 14:08 Dose: Not Given Lidocaine/Epinephrine (Xylocaine-Mpf 2%-Epi 1:200,000) Confirm Administered Dose 20 ml .ROUTE .STK-MED ONE Stop: 02/01/17 14:56 Meperidine HCl (Demerol) 12.5 mg IVPUSH ONETIME PRN PRN Reason: shivering Stop: 02/02/17 15:24 Last Admin: 02/01/17 17:00 Dose: 12.5 mg Meperidine HCl (Demerol) Confirm Administered Dose 50 mg .ROUTE .STK-MED ONE Stop: 02/01/17 15:39 Methylergonovine Maleate (Methergine) Confirm Administered Dose 0.2 mg .ROUTE .STK-MED ONE Stop: 02/01/17 15:16 Metoclopramide HCl (Reglan) 10 mg IVPUSH ONETIME ONE Stop: 02/01/17 14:39 Last Admin: 02/01/17 14:45 Dose: 10 mg Metoclopramide HCl (Reglan) 10 mg IVPUSH ONETIME ONE Stop: 02/01/17 14:41 Last Admin: 02/01/17 19:14 Dose: Not Given Misoprostol (Cytotec) Confirm Administered Dose 400 mcg .ROUTE .STK-MED ONE Stop: 02/01/17 15:59 Last Admin: 02/01/17 18:26 Dose: Not Given Misoprostol (Cytotec) 400 mcg PO ONETIME ONE Stop: 02/01/17 17:09 Last Admin: 02/01/17 18:27 Dose: Not Given Morphine Sulfate (Duramorph Pf) Confirm Administered Dose 10 mg .ROUTE .STK-MED ONE Stop: 02/01/17 14:57 Nalbuphine HCl (Nubain) 10 mg IVPUSH Q2H PRN PRN Reason: Pain (moderate 4-6) Ondansetron HCl (Zofran) 4 mg IVPUSH Q4H PRN PRN Reason: Nausea/Vomiting Ondansetron HCl (Zofran) Confirm Administered Dose 4 mg .ROUTE .STK-MED ONE Stop: 02/01/17 14:56 Ondansetron HCl (Zofran) 4 mg IVPUSH ONETIME PRN PRN Reason: Nausea/Vomiting Oxytocin (Pitocin) Confirm Administered Dose 20 unit .ROUTE .STK-MED ONE Stop: 02/01/17 14:56 Phenylephrine HCl ([place]let-Synephrine) Confirm Administered Dose 10 mg .[address] .[facility] ONE Stop: 02/01/17 14:56 Sodium Chloride (Saline Flush) 10 ml FLUSH ASDIRECTED PRN PRN Reason: Keep Vein Open Sodium Chloride (Saline Flush) 10 ml FLUSH ASDIRECTED PRN PRN Reason: Keep Vein Open *Q Meaningful Use (DIS) - VTE *Q VTE Criteria *Q: - Stroke *Q Stroke Criteria *Q: - AMI *Q AMI Criteria *Q:
== END 2017-02-03 18:07 | disposition home or self-care (01) | DRG 540 ==
LOC: JD.OBCHECK 03:19 → JD.OB 03:22 → JD.OBCHECK 03:43 → JD.OB 03:46 → OBSVTOIN 15:21 → JD.OB 15:21
PROVIDERS: ADMIT Obstetrics & Gynecology; ATTEND Obstetrics & Gynecology
PROC: 10D00Z1 Extraction of Products of Conception, Low, Open Approach (ICD-10-PCS; principal; 2017-02-01)
PROC: 10907ZC Drainage of Amniotic Fluid, Therapeutic from Products of Conception, Via Natural or Artificial Opening (ICD-10-PCS; 2017-02-01)
PROC: 00HU33Z Insertion of Infusion Device into Spinal Canal, Percutaneous Approach (ICD-10-PCS; 2017-02-01)
PROC: 3E0R3CZ (ICD-10-PCS; 2017-02-01)
DX: O99.824 Streptococcus B carrier state complicating childbirth (principal); Z3A.41 41 weeks gestation of pregnancy; Z37.0 Single live birth; O77.0 Labor and delivery complicated by meconium in amniotic fluid; O64.0XX0 Obstructed labor due to incomplete rotation of fetal head, not applicable or unspecified; O62.2 Other uterine inertia
CPT/HCPCS: 01967; 01968; 36415; 85025; 86850; 86870; 86900; 86901; 94762; A9270-GY; J0290; J0690; J1885; J2175; J2210; J2270; J2370; J2405; J2590; J2765; J3010; J7030; J7042; J7120

== ENCOUNTER 2020-01-29 05:44 | Inpatient (IN) | payer BC ==
[~2020-01-29 05:44] MED LIST: Sodium Chloride 0.9% 10 ML Syringe FLUSH PRN
[2020-01-29] MEDS: Lactated Ringers 1,000 ML IV SCH ×2 (06:20→11:15)
[2020-01-29] MEDS ORDERED: ceFAZolin 1 GM Vial ONE (07:03)
[2020-01-29] MEDS ORDERED: Ondansetron 4 MG/2 ML SDV ONE (07:03)
[2020-01-29] MEDS ORDERED: Morphine PF 1 MG/ML Amp ONE (07:03)
--- NOTE | 2020-01-29 07:23 | PCM.OPNOTE ---
- General Post-Op/Procedure Note Date of Surgery/Procedure: 01/29/20 Operative Procedure(s): Repeat low transverse Findings: Minimal amount of scar tissue between rectus and fascia. Minimal scarring between uterus and bladder. Baby boy in a vertex presentation. APGARS of 9 & 9. Weight of 7 lbs 12 oz. Grossly normal appearance of the uterus, fallopian tubes, and ovaries. Pre Op Diagnosis: History of . 39 2/7 weeks gestation Post-Op Diagnosis: Same Anesthesia Technique: Spinal Primary Surgeon: Sandra Levine Secondary Surgeon: Reina Roach Anesthesia Provider: Pham Villa Reason Channel Process Supervisor Was Necessary: Speed, safety of procedure Pathology: Cord blood collected, cord blood discarded Fluid Replacement, Intraop: 2,500 Output, Urine Amount: 275 EBL in mLs: 700 Complications: None Condition: Good Free Text/Narrative:: The risks, benefits, indications, potential complications, and alternatives were explained to the patient and informed consent obtained. After induction of anesthesia, the patient was placed in a supine position and then draped and prepped in the usual sterile manner. A Pfannenstiel incision was made and carried down through the subcutaneous tissue to the fascia. Fascial incision was made and extended transversely. The fascia was from the underlying rectus tissue superiorly and inferiorly. The peritoneum was identified and entered. Peritoneal incision was extended longitudinally. The utero-vesical peritoneal reflection was incised transversely and the bladder flap was bluntly freed from the lower uterine segment. A low transverse uterine incision was made sharply with a scalpel and extended bluntly in a cephalocaudad direction. A baby boy was delivered from a vertex presentation with APGARS as above. After the umbilical cord was clamped and cut cord blood was obtained for evaluation. The placenta was removed intact and appeared normal. The uterus was exteriorized and cleared of clots. The uterine outline, tubes and ovaries appeared normal. The uterine incision was closed with running locked sutures of 0 Vicryl. Hemostasis was obtained with a second imbricating layer of 0 vicryl. The uterus was then placed back into the abdomen. The infracolic gutters were cleared of blood clots. The fascia was then reapproximated with running sutures of 0 Vicryl. The subcutaneous tissue was irrigated with sterile warm normal saline, hemostasis obtained with cautery. This layer was closed with several interrupted sutures of 0 Vicryl. The skin was reapproximated with running Subcuticular 4-0 monocryl sutures. Incision sealed with Dermabond. Instrument, sponge, and needle counts were correct prior the abdominal closure and at the conclusion of the case.
--- NOTE | 2020-01-29 07:23 | PCM.PREANE ---
Preanesthetic Assessment - Procedure Proposed Procedure: maria dolores - Anesthesia/Transfusion/Family Hx Anesthesia History: Prior Anesthesia Without Reaction Family History of Anesthesia Reaction: No Transfusion History: No Prior Transfusion(s) - Review of Systems General: No Symptoms, Night Sweats Pulmonary: No Symptoms Cardiovascular: No Symptoms Gastrointestinal: No Symptoms Neurological: No Symptoms Other: Reports: None - Physical Assessment NPO Status Date: 01/28/20 NPO Status Time: 22:30 Vital Signs: Last Vital Signs Temp 98.1 F 01/29/20 06:01 Pulse 108 H 01/29/20 06:01 Resp 16 01/29/20 06:01 BP 127/88 01/29/20 06:01 Pulse Ox 98 01/29/20 06:01 Height: 5 ft 2 in Weight: 81.511 kg ASA Class: 2 Mental Status: Alert & Oriented x3 Airway Class: Mallampati = 1 Dentition: Reports: Normal Dentition Thyro-Mental Finger Breadths: 3 Mouth Opening Finger Breadths: 3 ROM/Head Extension: Full Lungs: Clear to Auscultation, Normal Respiratory Effort Cardiovascular: Regular Rate, Regular Rhythm, No Murmurs - Lab Values: Laboratory Last Values WBC 9.86 K/mm3 (3.98-10.04) 01/29/20 06:05 RBC 4.40 M/mm3 (3.98-5.22) 01/29/20 06:05 Hgb 12.9 gm/dl (11.2-15.7) 01/29/20 06:05 Hct 38.4 % (34.1-44.9) 01/29/20 06:05 MCV 87.3 fl (79.4-94.8) 01/29/20 06:05 MCH 29.3 pg (25.6-32.2) 01/29/20 06:05 MCHC 33.6 g/dl (32.2-35.5) 01/29/20 06:05 RDW Std Deviation 41.9 fL (36.4-46.3) 01/29/20 06:05 Plt Count 239 K/mm3 (182-369) 01/29/20 06:05 MPV 9.3 fl (9.4-12.3) L 01/29/20 06:05 Neut % (Auto) 65.8 % (34.0-71.1) 01/29/20 06:05 Lymph % (Auto) 24.5 % (19.3-51.7) 01/29/20 06:05 [place] % (Auto) 8.2 % (4.7-12.5) 01/29/20 06:05 Eos % (Auto) 0.5 (0.7-5.8) L 01/29/20 06:05 Baso % (Auto) 0.2 % (0.1-1.2) 01/29/20 06:05 Neut # (Auto) 6.48 K/mm3 (1.56-6.13) H 01/29/20 06:05 Lymph # (Auto) 2.42 K/mm3 (1.18-3.74) 01/29/20 06:05 [place] # (Auto) 0.81 K/mm3 (0.24-0.36) H 01/29/20 06:05 Eos # (Auto) 0.05 K/mm3 (0.04-0.36) 01/29/20 06:05 Baso # (Auto) 0.02 K/mm3 (0.01-0.08) 01/29/20 06:05 - Allergies Allergies/Adverse Reactions: Allergies Allergy/AdvReac Type Severity Reaction Status Date / Time No Known Allergies Allergy Verified 01/28/20 16:26 - Blood Blood Available: No - Acknowledgements Anesthesia Type Planned: Spinal Pt an Appropriate Candidate for the Planned Anesthesia: Yes Alternatives and Risks of Anesthesia Discussed w Pt/Guardian: Yes Pt/Guardian Understands and Agrees with Anesthesia Plan: Yes PreAnesthesia Questionnaire Cardiovascular History: Reports: None Respiratory History: Reports: None Gastrointestinal History: Reports: GERD (occ with preg) Genitourinary History: Reports: UTI, Recurrent EDGER TECHNICIAN History: Reports: : 2 (39 3) Para: 1 Musculoskeletal History: Reports: None Oncologic (Cancer) History: Reports: None - Past Surgical History HEENT Surgical History: Reports: Adenoidectomy, Tonsillectomy Other HEENT Surgeries/Procedures: T&A in 2009, Tooth extractions 2014 Female Surgical History: Reports: Section Other Female Surgeries/Procedures: C/S 2017 - SUBSTANCE USE Smoking Status *Q: Never Smoker Tobacco Use Within Last Twelve Months: No Second Hand Smoke Exposure: No Days Per Week of Alcohol Use: 0 Recreational Drug Use History: No - HOME MEDS Home Medications: Home Meds Pnv,Calcium 72/Iron/Folic Acid [ Plus Tablet] 1 tab PO DAILY 01/28/20 [History] - CURRENT (IN HOUSE) MEDS Current Meds: Current Medications Citric Acid/Sodium Citrate (Bicitra Solution) 30 ml PO ONETIME ONE Stop: 01/29/20 07:31 Last Admin: 01/29/20 06:58 Dose: 30 ml Documented by: Cefazolin Sodium/Dextrose 2 gm (/ Premix) 50 mls @ 100 mls/hr IV ONETIME ONE Stop: 01/29/20 08:14 Oxytocin/Lactated Ringer's (Pitocin In Lr 10 Units/1,000 Ml) 10 unit in 1,000 mls @ 100 mls/hr IV ASDIRECTED YONG; Protocol Lactated Ringer's (Ringers, Lactated) 1,000 mls @ 125 mls/hr IV ASDIRECTED YONG Metoclopramide HCl (Reglan) 10 mg IVPUSH ONETIME ONE Stop: 01/29/20 07:31 Last Admin: 01/29/20 07:00 Dose: 10 mg Documented by: Sodium Chloride (Saline Flush) 10 ml FLUSH ASDIRECTED PRN PRN Reason: Keep Vein Open Discontinued Medications Cefazolin Sodium (Ancef) Confirm Administered Dose 2 gm .ROUTE .STK-MED ONE Stop: 01/29/20 07:04 Morphine Sulfate (Duramorph Pf) Confirm Administered Dose 1 mg .ROUTE .STK-MED ONE Stop: 01/29/20 07:04 Ondansetron HCl (Zofran) Confirm Administered Dose 4 mg .ROUTE .STK-MED ONE Stop: 01/29/20 07:04
[2020-01-29] MEDS ORDERED: Citric Acid/Sodium Citrate Solution 30 ML Cup PO ONE (07:30)
[2020-01-29] MEDS ORDERED: Metoclopramide 10 MG/2 ML SDV IVPUSH ONE (07:30)
[2020-01-29] MEDS ORDERED: ceFAZolin 2 GM in Premix Bag 1 BAG IV ONE (07:45)
[2020-01-29] MEDS ORDERED: Oxytocin 10 Units/1 ML SDV ONE (07:55)
[2020-01-29] MEDS ORDERED: ePHEDrine Sulfate/0.9% NaCl/Pf 25 MG/5 ML SYRINGE IV ONE (07:58)
[2020-01-29] MEDS ORDERED: Oxytocin/Lactated Ringers 10 UNIT/1,000 ML BAG IV SCH (08:00)
[2020-01-29] MEDS ORDERED: Bupivacaine/fentaNYL/NS 100 ML Bag EPIDUR PRN (08:10)
[2020-01-29] MEDS ORDERED: diphenhydrAMINE 50 MG/ML SDV IVPUSH PRN ×2 (08:10→08:11)
[2020-01-29] MEDS ORDERED: ePHEDrine 50 MG/ML SDV IVPUSH PRN (08:10)
[2020-01-29] MEDS ORDERED: fentaNYL 100 MCG/2 ML SDV EPIDUR PRN (08:10)
[2020-01-29] MEDS ORDERED: fentaNYL 100 MCG/2 ML SDV IVPUSH PRN (08:11)
[2020-01-29] MEDS ORDERED: Ondansetron 4 MG/2 ML SDV IVPUSH PRN (08:11)
[2020-01-29] MEDS ORDERED: Ketorolac 30 MG/ML SDV ONE (08:14)
[2020-01-29] MEDS ORDERED: Lactated Ringers 1,000 ML ONE ×2 (08:21)
--- NOTE | 2020-01-29 08:45 | PCM.POSTAN ---
POST ANESTHESIA ASSESSMENT - MENTAL STATUS Mental Status: Alert, Oriented - VITAL SIGNS Vital Signs: Last Vital Signs Temp 98.1 F 01/29/20 06:01 Pulse 108 H 01/29/20 06:01 Resp 16 01/29/20 06:01 BP 127/88 01/29/20 06:01 Pulse Ox 98 01/29/20 06:01 0838 65 15 98.3 100% 101/65 - RESPIRATORY Respiratory Status: Respiratory Rate WNL, Airway Patent, O2 Saturation Stable, Supplemental Oxygen - CARDIOVASCULAR CV Status: Pulse Rate WNL, Blood Pressure Stable - GASTROINTESTINAL GI Status: No Symptoms - PAIN Pain Score: 0 - POST OP HYDRATION Hydration Status: Adequate & Stable
[2020-01-29] MEDS ORDERED: Docusate Sodium 100 MG Cap PO PRN (10:22)
[2020-01-29] MEDS ORDERED: Acetaminophen/oxyCODONE 325-5 MG Tab PO PRN ×2 (10:22)
[2020-01-29] MEDS ORDERED: Ondansetron 4 MG/2 ML SDV IV PRN (10:22)
[2020-01-29] MEDS ORDERED: Dextrose 5%-Lactated Ringers 1,000 ML IV SCH (10:22)
[2020-01-29] MEDS: Ketorolac 30 MG/ML SDV IVPUSH SCH ×2 (14:30→20:43)
[2020-01-30] MEDS: Ketorolac 30 MG/ML SDV IVPUSH SCH (02:58)
--- NOTE | 2020-01-30 07:09 | PCM.PNPP ---
- General Info Date of Service: 01/30/20 Functional Status: Reports: Pain Controlled, Tolerating Diet, Ambulating, Urinating - Review of Systems General: Reports: No Symptoms Pulmonary: Reports: No Symptoms Cardiovascular: Reports: No Symptoms Gastrointestinal: Reports: Abdominal Pain (minimal) Genitourinary: Reports: No Symptoms Musculoskeletal: Reports: No Symptoms Neurological: Reports: No Symptoms - Patient Data Vital Signs - Most Recent: Last Vital Signs Temp 36.6 C 01/30/20 03:05 Pulse 77 01/30/20 03:05 Resp 16 01/30/20 06:00 BP 118/69 01/30/20 03:05 Pulse Ox 100 01/30/20 06:00 Weight - Most Recent: 81.511 kg I&O - Last 24 Hours: Intake & Output 01/29/20 01/30/20 01/30/20 22:59 06:59 14:59 Intake Total 4000 Output Total 2290 3000 Balance -2290 1000 Lab Results - Last 24 Hours: Laboratory Results - last 24 hr 01/29/20 01/29/20 01/30/20 Range/Units 06:05 06:05 05:25 WBC 13.30 H (3.98-10.04) K/mm3 RBC 3.60 L (3.98-5.22) M/mm3 Hgb 10.5 L D (11.2-15.7) gm/dl Hct 32.3 L (34.1-44.9) % MCV 89.7 (79.4-94.8) fl MCH 29.2 (25.6-32.2) pg MCHC 32.5 (32.2-35.5) g/dl RDW Std Deviation 43.1 (36.4-46.3) fL Plt Count 187 (182-369) K/mm3 MPV 9.2 L (9.4-12.3) fl RPR Non-reactive (NONREACTIVE) Gel Antibody Screen Positive Med Orders - Current: Current Medications Diphenhydramine HCl (Benadryl) 25 mg IVPUSH Q6H PRN PRN Reason: Pruritis Docusate Sodium (Colace) 100 mg PO Q12H PRN PRN Reason: Constipation Fentanyl (Sublimaze) 50 mcg IVPUSH Q5M PRN PRN Reason: Pain Ibuprofen (Motrin) 600 mg PO Q6H PRN PRN Reason: mild pain or fever Ondansetron HCl (Zofran) 4 mg IVPUSH ONETIME PRN PRN Reason: Nausea/Vomiting Ondansetron HCl (Zofran) 4 mg IV Q8H PRN PRN Reason: Nausea/Vomiting Oxycodone/Acetaminophen (Percocet 325-5 Mg) 1 tab PO Q4H PRN PRN Reason: Pain (moderate 4-6) Last Admin: 01/30/20 00:14 Dose: 1 tab Documented by: Oxycodone/Acetaminophen (Percocet 325-5 Mg) 2 tab PO Q4H PRN PRN Reason: Pain (severe 7-10) Discontinued Medications Cefazolin Sodium (Ancef) Confirm Administered Dose 2 gm .ROUTE .STK-MED ONE Stop: 01/29/20 07:04 Citric Acid/Sodium Citrate (Bicitra Solution) 30 ml PO ONETIME ONE Stop: 01/29/20 07:31 Last Admin: 01/29/20 06:58 Dose: 30 ml Documented by: Diphenhydramine HCl (Benadryl) 25 mg IVPUSH Q6H PRN PRN Reason: pruritis Ephedrine Sulfate (Ephedrine 25 Mg/5 Ml Syringe) Confirm Administered Dose 25 mg IV .STK-MED ONE Stop: 01/29/20 07:59 Ephedrine Sulfate (Ephedrine Sulfate) 5 mg IVPUSH ASDIRECTED PRN PRN Reason: Hypotension Fentanyl (Sublimaze) 100 mcg EPIDUR Q3H PRN PRN Reason: Pain Fentanyl/Bupivacaine HCl (Fentanyl/Bupivacaine/Ns 2 Mcg-0.125% 100 Ml) 100 ml EPIDUR ASDIRECTED PRN PRN Reason: Pain Cefazolin Sodium/Dextrose 2 gm (/ Premix) 50 mls @ 100 mls/hr IV ONETIME ONE Stop: 01/29/20 08:14 Oxytocin/Lactated Ringer's (Pitocin In Lr 10 Units/1,000 Ml) 10 unit in 1,000 mls @ 100 mls/hr IV ASDIRECTED YONG; Protocol Lactated Ringer's (Ringers, Lactated) 1,000 mls @ 125 mls/hr IV ASDIRECTED YONG Last Admin: 01/29/20 11:15 Dose: 125 mls/hr Documented by: Lactated Ringer's (Ringers, Lactated) Confirm Administered Dose 1,000 mls @ as directed .ROUTE .STK-MED ONE Stop: 01/29/20 08:22 Lactated Ringer's (Ringers, Lactated) Confirm Administered Dose 1,000 mls @ as directed .ROUTE .STK-MED ONE Stop: 01/29/20 08:22 Dextrose/Lactated Ringer's (Dextrose 5%-Lactated Ringers) 1,000 mls @ 125 mls/hr IV ASDIRECTED YONG Stop: 01/29/20 18:21 Last Admin: 01/29/20 16:36 Dose: 125 mls/hr Documented by: Ketorolac Tromethamine (Toradol) Confirm Administered Dose 30 mg .ROUTE .STK-MED ONE Stop: 01/29/20 08:15 Ketorolac Tromethamine (Toradol) 30 mg IVPUSH Q6H [facility] Stop: 01/30/20 02:31 Last Admin: 01/30/20 02:58 Dose: 30 mg Documented by: Metoclopramide HCl (Reglan) 10 mg IVPUSH ONETIME ONE Stop: 01/29/20 07:31 Last Admin: 01/29/20 07:00 Dose: 10 mg Documented by: Morphine Sulfate (Duramorph Pf) Confirm Administered Dose 1 mg .ROUTE .STK-MED ONE Stop: 01/29/20 07:04 Ondansetron HCl (Zofran) Confirm Administered Dose 4 mg .ROUTE .STK-MED ONE Stop: 01/29/20 07:04 Oxytocin (Pitocin) Confirm Administered Dose 10 unit .ROUTE .STK-MED ONE Stop: 01/29/20 07:56 Sodium Chloride (Saline Flush) 10 ml FLUSH ASDIRECTED PRN PRN Reason: Keep Vein Open - Infant Interaction Infant Disposition, : in Room with Family Infant Interaction: Holding Infant Feeding: Breastfed Infant; Nursed Well Support Person: - Recovery Exam Fundal Tone: Firm Fundal Level: At Umbilicus Fundal Placement: Midline Lochia Amount: Scant Lochia Color: Rubra/Red Episiotomy/Laceration: None Bladder Status: Voiding Urinary Elimination: Voided - Exam General: Alert, Oriented, Cooperative Lungs: Clear to Auscultation, Normal Respiratory Effort Cardiovascular: Regular Rate, Regular Rhythm GI/Abdominal Exam: Soft, Tender (appropriate post op ) Extremities: Normal Inspection Skin: Warm, Dry, Intact Wound/Incisions: Healing Well, Other (some bruising inferior to incision ) - Problem List & Annotations (1) 39 weeks gestation of SNOMED Code(s): 98165788 Code(s): Z3A.39 - 39 WEEKS GESTATION OF Status: Acute Current Visit: Yes (2) S/P repeat low transverse SNOMED Code(s): 565215567, 51972237, 605944824, 877662873, 170407840 Code(s): Z98.891 - HISTORY OF UTERINE SCAR FROM PREVIOUS SURGERY Status: Acute Current Visit: Yes - Problem List Review Problem List Initiated/Reviewed/Updated: Yes - My Orders Last 24 Hours: My Active Orders 01/29/20 Breakfast Regular Diet [DIET] 01/29/20 10:22 Acetaminophen/oxyCODONE [Percocet 325-5 MG] 1 tab PO Q4H PRN Acetaminophen/oxyCODONE [Percocet 325-5 MG] 2 tab PO Q4H PRN Docusate Sodium [Colace] 100 mg PO Q12H PRN Ondansetron [Zofran] 4 mg IV Q8H PRN 01/29/20 10:22 Antiembolic Devices [RC] PER UNIT ROUTINE Communication Order [RC] PER UNIT ROUTINE Communication Order [RC] PER UNIT ROUTINE Intake and Output [RC] Q4H May Shower [RC] PER UNIT ROUTINE Notify Provider Intake and Out [RC] ASDIRECTED RT Incentive Spirometry [RC] Q2HWA Vital Signs [RC] Q4HR Assess Lochia [WOMSER] Per Unit Routine Assess Uterine Involution [WOMSER] Per Unit Routine Breast Pump [WOMSER] Per Unit Routine Peripheral IV Discontinue [OM.PC] Routine Sequential Compression Device [OM.PC] Per Unit Routine 01/30/20 08:30 Ibuprofen [Motrin] 600 mg PO Q6H PRN 01/30/20 08:42 Urinary Catheter Removal [RC] Per Unit Routine - Assessment Assessment:: POD#1 - Plan Plan:: * Routine cares * Breast feeding * Desires discharge home today. Meeting all goals. Will accommodate request
--- NOTE | 2020-01-30 08:00 | PCM48HPAN ---
Post Anesthesia Note - EVALUATION WITHIN 48HRS OF ANESTHETIC Vital Signs in Normal Range: Yes Patient Participated in Evaluation: Yes Respiratory Function Stable: Yes Airway Patent: Yes Cardiovascular Function Stable: Yes Hydration Status Stable: Yes Pain Control Satisfactory: Yes Nausea and Vomiting Control Satisfactory: Yes Mental Status Recovered: Yes Vital Signs: Last Vital Signs Temp 36.6 C 01/30/20 03:05 Pulse 77 01/30/20 03:05 Resp 16 01/30/20 06:00 BP 118/69 01/30/20 03:05 Pulse Ox 100 01/30/20 06:00 - COMMENTS/OBSERVATIONS Free Text/Narrative:: no anesthesia complications noted
[2020-01-30] MEDS ORDERED: Ibuprofen 600 MG Tab PO PRN (08:30)
--- NOTE | 2020-01-30 10:51 | PCM.DCSUM1 ---
Discharge Summary - Discharge Data Discharge Date: 01/30/20 Discharge Disposition: Home, Self-Care 01 Condition: Good - Referral to Home Health Primary Care Physician: PCP None - Discharge Diagnosis/Problem(s) (1) 39 weeks gestation of SNOMED Code(s): 29179101 ICD Code: Z3A.39 - 39 WEEKS GESTATION OF Status: Acute Current Visit: Yes (2) S/P repeat low transverse SNOMED Code(s): 321288759, 23206793, 485507433, 594260968, 279660127 ICD Code: Z98.891 - HISTORY OF UTERINE SCAR FROM PREVIOUS SURGERY Status: Acute Current Visit: Yes - Patient Summary/Data Operative Procedure(s) Performed: Repeat low transverse Complications: None Consults: None Recommended Follow-up Testing/Procedures: Follow up in 3 weeks for check Hospital Course: 29 y/o woman at 39 2/7 wks who presented for planned RLTCS. Surgery was uncomplicated. See operative note. did well and was meeting all goals. Requested discharge home on PPD#1 - Patient Instructions Diet: Regular Diet as Tolerated Activity: No Lifting Over 10 Pounds Activity, Other: Pelvic rest for 6 weeks Driving: Do Not Drive (while taking narcotics ) Showering/Bathing: May Shower, No Tub Bathing/Swimming Wound/Incision Care: Keep Operative Site/Wound Site Clean and Dry Notify Provider of: Fever, Increased Pain, Swelling and Redness, Drainage, Nausea and/or Vomiting - Discharge Plan *PRESCRIPTION DRUG MONITORING PROGRAM REVIEWED*: No *COPY OF PRESCRIPTION DRUG MONITORING REPORT IN PATIENT DAYANA: No Prescriptions/Med Rec: Acetaminophen/oxyCODONE [Percocet 325-5 MG] 1 - 2 tab PO Q4H PRN #25 tablet PRN Reason: Pain (Severe 7-10) Home Medications: Home Meds Pnv,Calcium 72/Iron/Folic Acid [ Plus Tablet] 1 tab PO DAILY 01/28/20 [History] Acetaminophen/oxyCODONE [Percocet 325-5 MG] 1 - 2 tab PO Q4H PRN #25 tablet 01/30/20 [Rx] Docusate Sodium [Colace] 100 mg PO Q12H PRN cap 01/30/20 [Rx] Ibuprofen [Motrin] 600 mg PO Q6H PRN tablet 01/30/20 [Rx] Referrals: Sandra Levine MD [Physician] - (3 weeks for check ) - Discharge Summary/Plan Comment DC Time >30 min.: No - Patient Data Vitals - Most Recent: Last Vital Signs Temp 36.6 C 01/30/20 03:05 Pulse 77 01/30/20 03:05 Resp 16 01/30/20 08:00 BP 118/69 01/30/20 03:05 Pulse Ox 99 01/30/20 08:00 Weight - Most Recent: 81.511 kg I&O - Last 24 hours: Intake & Output 01/29/20 01/30/20 01/30/20 22:59 06:59 14:59 Intake Total 4000 180 Output Total 2290 3000 700 Balance -2290 1000 -520 Lab Results - Last 24 hrs: Laboratory Results - last 24 hr 01/29/20 01/30/20 Range/Units 06:05 05:25 WBC 13.30 H (3.98-10.04) K/mm3 RBC 3.60 L (3.98-5.22) M/mm3 Hgb 10.5 L D (11.2-15.7) gm/dl Hct 32.3 L (34.1-44.9) % MCV 89.7 (79.4-94.8) fl MCH 29.2 (25.6-32.2) pg MCHC 32.5 (32.2-35.5) g/dl RDW Std Deviation 43.1 (36.4-46.3) fL Plt Count 187 (182-369) K/mm3 MPV 9.2 L (9.4-12.3) fl RPR Non-reactive (NONREACTIVE) Med Orders - Current: Current Medications Diphenhydramine HCl (Benadryl) 25 mg IVPUSH Q6H PRN PRN Reason: Pruritis Docusate Sodium (Colace) 100 mg PO Q12H PRN PRN Reason: Constipation Fentanyl (Sublimaze) 50 mcg IVPUSH Q5M PRN PRN Reason: Pain Ibuprofen (Motrin) 600 mg PO Q6H PRN PRN Reason: mild pain or fever Ondansetron HCl (Zofran) 4 mg IVPUSH ONETIME PRN PRN Reason: Nausea/Vomiting Ondansetron HCl (Zofran) 4 mg IV Q8H PRN PRN Reason: Nausea/Vomiting Oxycodone/Acetaminophen (Percocet 325-5 Mg) 1 tab PO Q4H PRN PRN Reason: Pain (moderate 4-6) Last Admin: 01/30/20 00:14 Dose: 1 tab Documented by: Oxycodone/Acetaminophen (Percocet 325-5 Mg) 2 tab PO Q4H PRN PRN Reason: Pain (severe 7-10) Discontinued Medications Cefazolin Sodium (Ancef) Confirm Administered Dose 2 gm .ROUTE .STK-MED ONE Stop: 01/29/20 07:04 Citric Acid/Sodium Citrate (Bicitra Solution) 30 ml PO ONETIME ONE Stop: 01/29/20 07:31 Last Admin: 01/29/20 06:58 Dose: 30 ml Documented by: Diphenhydramine HCl (Benadryl) 25 mg IVPUSH Q6H PRN PRN Reason: pruritis Ephedrine Sulfate (Ephedrine 25 Mg/5 Ml Syringe) Confirm Administered Dose 25 mg IV .STK-MED ONE Stop: 01/29/20 07:59 Ephedrine Sulfate (Ephedrine Sulfate) 5 mg IVPUSH ASDIRECTED PRN PRN Reason: Hypotension Fentanyl (Sublimaze) 100 mcg EPIDUR Q3H PRN PRN Reason: Pain Fentanyl/Bupivacaine HCl (Fentanyl/Bupivacaine/Ns 2 Mcg-0.125% 100 Ml) 100 ml EPIDUR ASDIRECTED PRN PRN Reason: Pain Cefazolin Sodium/Dextrose 2 gm (/ Premix) 50 mls @ 100 mls/hr IV ONETIME ONE Stop: 01/29/20 08:14 Oxytocin/Lactated Ringer's (Pitocin In Lr 10 Units/1,000 Ml) 10 unit in 1,000 mls @ 100 mls/hr IV ASDIRECTED YONG; Protocol Lactated Ringer's (Ringers, Lactated) 1,000 mls @ 125 mls/hr IV ASDIRECTED YONG Last Admin: 01/29/20 11:15 Dose: 125 mls/hr Documented by: Lactated Ringer's (Ringers, Lactated) Confirm Administered Dose 1,000 mls @ as directed .ROUTE .[employer]-MED ONE Stop: 01/29/20 08:22 Lactated Ringer's (Ringers, Lactated) Confirm Administered Dose 1,000 mls @ as directed .ROUTE .STK-MED ONE Stop: 01/29/20 08:22 Dextrose/Lactated Ringer's (Dextrose 5%-Lactated Ringers) 1,000 mls @ 125 mls/hr IV ASDIRECTED YONG Stop: 01/29/20 18:21 Last Admin: 01/29/20 16:36 Dose: 125 mls/hr Documented by: Ketorolac Tromethamine (Toradol) Confirm Administered Dose 30 mg .ROUTE .STK-MED ONE Stop: 01/29/20 08:15 Ketorolac Tromethamine (Toradol) 30 mg IVPUSH Q6H YONG Stop: 01/30/20 02:31 Last Admin: 01/30/20 02:58 Dose: 30 mg Documented by: Metoclopramide HCl (Reglan) 10 mg IVPUSH ONETIME ONE Stop: 01/29/20 07:31 Last Admin: 01/29/20 07:00 Dose: 10 mg Documented by: Morphine Sulfate (Duramorph Pf) Confirm Administered Dose 1 mg .ROUTE .STK-MED ONE Stop: 01/29/20 07:04 Ondansetron HCl (Zofran) Confirm Administered Dose 4 mg .ROUTE .STK-MED ONE Stop: 01/29/20 07:04 Oxytocin (Pitocin) Confirm Administered Dose 10 unit .ROUTE .STK-MED ONE Stop: 01/29/20 07:56 Sodium Chloride (Saline Flush) 10 ml FLUSH ASDIRECTED PRN PRN Reason: Keep Vein Open
[2020-01-30 11:59] VITALS: BP 116/71; PULSE 90
== END 2020-01-30 15:50 | disposition home or self-care (01) | DRG 540 ==
LOC: JD.OB 05:44 → UNDOADMIN 05:44 → JD.OB 01-30 07:42 → UNDODISIN 01-30 15:50
PROVIDERS: ADMIT Obstetrics & Gynecology; ATTEND Obstetrics & Gynecology
PROC: 10D00Z1 Extraction of Products of Conception, Low, Open Approach (ICD-10-PCS; principal; 2020-01-29)
DX: O34.211 Maternal care for low transverse scar from previous cesarean delivery (principal); Z37.0 Single live birth; Z3A.39 39 weeks gestation of pregnancy
CPT/HCPCS: 01961; 36415; 59025; 85025; 85027; 86592; 86850; 86870; 86900; 86901; 94761; 94762; A9270-GY; J0171; J0690; J1885; J2274; J2405; J2590; J2765; J7120; J7121